=== PATIENT | female | born 1965 | race Caucasian/White ===

== ENCOUNTER 2016-11-15 16:54 | Emergency (ER) | payer SELFPAY ==
--- NOTE | 2016-11-17 11:08 | ER ---
ADMIT: 11/15/2016 RM/LOC: ER [facility] MR#: [id number] [facility] [address] [place] [id number] VERONICA SCOTTA Gisselle [address] [place] [address] Emergency Room Report SEX: F AGE: 51 : 1965 DATE: 11/15/2016 HISTORY OF PRESENT ILLNESS: This is a 51-year-old female, who presents to the emergency room with a friend with very vague symptoms. She states that she felt like she could pass out, has some pressure in her anterior chest. These are intermittent episodes. They kind of come and go. She had any full-blown chest pain with radiation to arms or neck. She said her heart beats too fast sometimes. She gets dizzy and pretty anxious and gets sweaty as well. She has had similar symptoms in the past but not as bad she says today. She is battling a sinus infection. She has had also stomach problems. Her friend reminds her that she does have issues with anxiety and takes medication for in the form of Ativan, which she ran out of. PAST MEDICAL HISTORY: Hypertension and anxiety. She has had C-sections x2. ALLERGIES: SHE IS ALLERGIC TO PENICILLIN. PHYSICAL EXAMINATION: VITAL SIGNS: Blood pressure 172/81, heart rate is 112 respirations 19, temp is 96.9, and O2 sats 97%. GENERAL: Alert. She is slightly anxious. HEENT: Maxillary sinus tenderness. NECK: Supple. RESPIRATIONS: No distress. CVS: Regular in rate and rhythm, although she is tachycardic at this time. ABDOMEN: Nontender. EXTREMITIES: Nontender. SKIN: Good color. [facility] sent her over to us for further evaluation as they thought that she needed to get EKG and further cardiac workup. She says just finished 2 rounds of cephalexin and did not do her much good. LABORATORY DATA: H. pylori nonreactive. WBC 11.4. Cardiac enzymes normal ADMIT: 11/15/2016 RM/LOC: [facility] MR#: [id number] [id number] IVA SCOTT [address] [place] [address] Emergency Room Report SEX: F AGE: 51 : 1965 include troponin of 0.015. TSH 0.632 are normal. UA normal. HCG negative. EKG is 88 beats per minute, normal sinus rhythm. CLINICAL IMPRESSION: Acute on chronic sinusitis with anxiety history. Elevated blood pressure without diagnosis of hypertension and no medications. The patient encouraged to use a Z-Yinka to help with her sinus infection Ativan for her anxiety as she says she is out of her medications. Follow up with primary provider. All her cardiac workup is within normal limits. Avoid cephalosporin, and she said she had a little bit of a reaction with a cephalexin she was given, but it did not help her. It only caused some issues with her stomach. Follow up with Dr. Araujo, [facility], for further care and evaluation. ANJEL Reddy / Ernesto Jones MD / candicel JOB #: [id number] CC: Ernesto Jones MD, Attending Physician Rex Dle Cid MD, Family Physician
== END 2016-11-15 20:55 | disposition home or self-care (01) ==
LOC: ER 16:54
DX: J32.9 Chronic sinusitis, unspecified (principal); R03.0 Elevated blood-pressure reading, without diagnosis of hypertension; F41.9 Anxiety disorder, unspecified; Z88.0 Allergy status to penicillin